=== PATIENT | male | born 1990 | race Caucasian/White ===

== ENCOUNTER 2024-05-30 19:36 | Emergency (ER) | payer OTHER, SELFPAY ==
[2024-05-30 19:44] VITALS: BP 132/93; PULSE 90; RESP 16; TEMP 36.6; O2SAT 100
--- NOTE | 2024-05-30 19:50 | ED_ITS ---
HPI - Skin/Abscess/Foreign Bdy General Chief complaint: Wound/Laceration Stated complaint: Facial Infection Time Seen by Provider: 05/30/24 19:50 Source: patient, RN notes reviewed and old records reviewed Mode of arrival: ambulatory Limitations: no limitations History of Present Illness HPI narrative: 34 year old male who presents to [facility] care with complaints of 2 day history of what he though was a pimple type of lesion to right upper forehead which he did squeeze on with purulent drainage emitted from lesion. He states that since yesterday he has had redness and increased size of wound. He also now has redness and swelling down on forehead with swelling around his right eye. MD complaint: abscess/boil and other Onset (ago): day(s) (2) Severity scale (1-10): 8 Quality: stabbing and aching Pain Consistency: constant Treatments prior to arrival: bandages and attempted to drain pus at home Related Data Home Medications Medication Instructions Recorded Confirmed No Home Medications 05/30/24 05/30/24 Allergies Allergy/AdvReac Type Severity Reaction Status Date / Time Penicillins Allergy Unknown Verified 05/30/24 19:53 Review of Systems Review of Systems: CONSTITUTIONAL: Denies fever, chills, or sweats. CARDIOVASCULAR: Denies chest pain, palpitations, or edema. RESPIRATORY: Denies cough or dyspnea. GASTROINTESTINAL: Denies abdominal pain, nausea, vomiting SKIN: Reports redness and swelling. abscess to right forehead and to right temporal area with purulent drainage, large pustular area, states very painful with swelling and redness around right eye. MUSCULOSKELETAL: Denies myalgia. NEUROLOGIC: Denies headache, numbness All systems reviewed & are unremarkable except as noted in HPI and below [facility] Surgical History Surgical History (Updated 06/01/24 @ 21:49 by Samira Self NP) S/P wisdom tooth extraction Social History Social History (Updated 06/01/24 @ 22:11 by Samira Self NP) Smoking status: Current every day smoker Tobacco type: e-cigarettes/vaping Additional smoking assessment comments: former cigarette smoker Alcohol use details: reports no alcohol use Last use: reports no substance use Comments At time of signature, agree with nursing past medical, surgical, social and family history. There is no relevant family history pertinent to the presenting complaint Exam Narrative: GENERAL: Well-appearing, well-nourished, and in no acute distress. HEAD: Normocephalic, atraumatic. EYES: PERRLA and EOMI. ENT: Nares clear, no rhinorrhea or epistaxis. Mucous membranes moist. NECK: Supple. no lymphadenopathy CHEST: Clear to auscultation. No respiratory distress.SAO2 100% on room air HEART: Regular rate and rhythm. No murmur heard. Normal peripheral pulses. ABDOMEN: Soft, nontender, nondistended, normal active bowel sounds. EXTREMITIES: Normal range of motion. No edema. SKIN: Warm, dry. Erythema, induration, tenderness, warmth to right forehead with swelling with large pustular lesion at hairline with redness going down forehead to tissue around right eye with swelling. Patient reports that area is very painful.some purulent drainage noted from lesion. NEURO: No focal deficits. Alert and oriented x3. Course Course Emergency Course: Patient is aware of diagnosis, understands and agrees to treatment plan. Anticipatory guidance given. Patient agrees to follow-up as directed and is aware of reasons to seek care at the emergency department. Portions of this record may have been created with voice recognition software Level of Care: Express Care Visit Vital Signs Vital signs: Vital Signs Temperature 36.6 C 05/30/24 19:44 Pulse Rate 90 05/30/24 19:44 Respiratory Rate 16 05/30/24 19:44 Blood Pressure 132/93 H 05/30/24 19:44 Pulse Oximetry 100 05/30/24 19:44 Oxygen Delivery Room Air 05/30/24 19:44 Temperature 36.6 C 05/30/24 19:44 Pulse Rate 90 05/30/24 19:44 Respiratory Rate 16 05/30/24 19:44 Blood Pressure 132/93 H 05/30/24 19:44 Pulse Oximetry 100 05/30/24 19:44 Oxygen Delivery Room Air 05/30/24 19:44 Reviewed Transfer Transfered to: [facility] Transportation: Other (per private car) Transfer rationale: large purulent lesion to right forehead with jossue-orbital cellulitis around right eye, painful, needs IV antibiotics an higher level of care. Accepting physician: Dr Manning Transfer comments: To [facility] per private car for further evaluation and treatment MDM - Skin/Abscess/Foreign Bdy MDM Narrative Medical decision making narrative: Does not appear at this time to be erythema multiforme, bullous, SJS, TEN; no evidence at this time to suggest RMSF, endocarditis or Lyme disease; patient looks well, nontoxic and is tolerating oral intake; no neurologic signs or symptoms; no headache, photophobia or neck pain; afebrile; appropriate for initial outpatient treatment; discussed the importance of follow-up, patient agrees. Patient does not have history of penetrating trauma, laceration, blunt trauma, recent surgery, immunosuppression, malignancy, obesity, alcoholism, corticosteroid use. Question cellulitis, necrotizing soft tissue infection, abscess. 2001 Call placed to ER at [facility] with condition reports, VS, PMH reviewed with Rj Mullins RN charge with Dr Manning accepting patient for transfer. Differential Diagnosis Differential diagnosis: Likely abscess of skin or subcutaneous tissue, cellulitis, contact dermatitis and other (periorbital cellulitis right eye) Medical Records Attestation: I reviewed the patient's medical records. Critical Care Time Critical Care Time Critical Care Time: No Discharge Plan Discharge Clinical Impression: Abscess of face Periorbital cellulitis Qualifiers: Laterality: right Qualified Code(s): L03.213 - Periorbital cellulitis Patient Disposition: Acute Care Hospital Condition: Stable Instructions: Antibiotic Form Prescriptions: No Action No Home Medications Follow-up/Referrals: PHYSICIAN,WATER QUALITY ANALYST [Primary Care Provider] - Time of Disposition: 20:07 Quality Scot Coma Scale Eyes: Open Verbal: Oriented and Alert Motor: Follows Commands [place] Coma Total Score: 15
== END 2024-05-30 20:05 | disposition short-term general hospital (02) ==
PROVIDERS: Emergency Provider Registered Nurse
DX: L02.01 Cutaneous abscess of face (principal); H05.011 Cellulitis of right orbit; F17.290 Nicotine dependence, other tobacco product, uncomplicated
CPT/HCPCS: 99202; G0463